=== PATIENT | female | born 1955 | race Caucasian/White ===

== ENCOUNTER 2021-05-29 10:19 | Outpatient (CLI) | payer MEDICARE | END 2021-05-29 10:20 | disposition home or self-care (01) | LOC: CSHRAD 10:19 | PROVIDERS: ATTEND Internal Medicine | DX: M25.552 Pain in left hip (principal) ==

== ENCOUNTER 2021-07-28 14:12 | Outpatient (CLI) | payer MEDICARE | END 2021-07-28 14:13 | disposition home or self-care (01) | LOC: CSHMRI 14:12 | PROVIDERS: ATTEND Internal Medicine | DX: R41.3 Other amnesia (principal); R94.02 Abnormal brain scan | CPT/HCPCS: 70553; 82565 ==

== ENCOUNTER 2021-07-29 14:23 | Inpatient (IN) | payer MEDICARE ==
[2021-07-29 15:22] LABS: ALT (SGPT) 15 U/L (8-55); AST (SGOT) 43 U/L (5-34); Albumin 4.1 g/dL (3.4-4.8); Alkaline Phosphatase 43 U/L (40-110); Anion Gap 16 mmol/L (10-20); BUN (Urea Nitrogen) 15 mg/dL (9.8-20.1); Bilirubin, Total 0.5 mg/dL (0.2-1.2); Calc. Creatinine Clearance 0 mL/min (70-130); Calcium 9.6 mg/dL (7.8-10.44); Carbon Dioxide 23 mmol/L (23-31); Chloride 104 mmol/L (98-107); Globulin 2.5 g/dL (2.4-3.5); Glucose 120 mg/dL (80-115); Potassium 4.4 mmol/L (3.5-5.1); Protein, Total 6.6 g/dL (5.8-8.1); Sodium 139 mmol/L (136-145)
[2021-07-29 15:25] LABS: #Eosinphils 0.1 10x3/uL (0.0-0.5); #Monocytes 0.6 10x3/uL (0.0-1.1); #Neutrophils 4.4 10x3/uL (1.5-8.4); %Basophils 0.4 % (0.0-2.0); %Eosinophils 1.1 % (0.0-6.0); %Lymphocytes 36.2 % (18.0-47.0); %Monocytes 7.3 % (0.0-10.0); %Neutrophils 54.7 % (40.0-75.0); Mean Corpuscular HGB CONC 33.5 g/dL (32.0-36.0); Mean Corpuscular Hemoglobin 30.9 pg (27.0-33.0); Mean Corpuscular Volume 92.2 fl (81.6-98.3); Mean Platelet Volume 10.1 fl (7.4-10.4); Platelet Count 263 10x3/uL (150-450); RBC Distribution Width 11.7 % (11.5-14.5); Red Blood Cell (RBC) Count 4.21 10x6/uL (3.90-5.03)
[2021-07-29] MEDS ORDERED: Enoxaparin Sodium 60 MG/0.6 ML SYRINGE ONE (16:09)
[2021-07-29 17:52] VITALS: BMI 21.2
[2021-07-29] MEDS ORDERED: Nitroglycerin 0.4 MG TAB (25 Tab Bottle) SL PRN (18:26)
[2021-07-29] MEDS ORDERED: Acetaminophen 650 MG Suppository PR PRN (18:26)
[2021-07-29] MEDS ORDERED: Ondansetron ODT 4 MG TAB PO PRN (18:26)
[2021-07-29] MEDS ORDERED: Aspirin Chewable 81 MG TAB PO SCH (19:00)
[2021-07-29] MEDS ORDERED: Dextrose 50% Abboject 50 ML SYRINGE SLOW IVP PRN (19:03)
[2021-07-29] MEDS ORDERED: Dextrose 5% in Water 1,000 ML IV PRN (19:03)
[2021-07-29] MEDS ORDERED: Insulin Regular 300 UNITS/3 ML VIAL SC PRN (19:03)
[2021-07-29 19:05] LABS: Hemoglobin 13.2 g/dL (12.0-15.5); Platelet Count 224 10x3/uL (150-450)
[2021-07-29 19:41] LABS: Syphilis Antibody Nonreactive (Nonreactive); Syphilis Antibody Index 0.06 S/CO (<1.00 Non-Reactive)
[2021-07-29 19:52] LABS: Troponin I 2.675 ng/mL (< 0.028)
[2021-07-29 20:26] LABS: Thyroid Stimulating Hormone 0.6738 uIU/mL (0.35-4.94)
[2021-07-29] MEDS: Atorvastatin Calcium 40 MG TAB PO SCH (20:54)
[2021-07-29] MEDS: Enoxaparin Sodium 60 MG/0.6 ML SYRINGE SC SCH (20:54)
[2021-07-29 22:12] LABS: Troponin I 1.902 ng/mL (< 0.028)
[2021-07-30] MEDS ORDERED: HYDROcodone/Acetaminophen 5/325 mg Tablet PO SCH (01:15)
[2021-07-30 05:42] LABS: Hemoglobin 12.2 g/dL (12.0-15.5); Mean Corpuscular HGB CONC 32.2 g/dL (32.0-36.0); Mean Corpuscular Hemoglobin 30.4 pg (27.0-33.0); Mean Corpuscular Volume 94.5 fl (81.6-98.3); Mean Platelet Volume 9.8 fl (7.4-10.4); Platelet Count 212 10x3/uL (150-450); RBC Distribution Width 11.6 % (11.5-14.5); Red Blood Cell (RBC) Count 4.01 10x6/uL (3.90-5.03); White Blood Cell (WBC) Count 6.7 10x3/uL (3.5-10.5)
[2021-07-30 05:56] LABS: Anion Gap 15 mmol/L (10-20); BUN (Urea Nitrogen) 14 mg/dL (9.8-20.1); Calc. Creatinine Clearance 69 mL/min (70-130); Carbon Dioxide 27 mmol/L (23-31); Cardiac Risk 3.6 (Less than 4.5); Chloride 106 mmol/L (98-107); Cholesterol 198 mg/dl (< 200 Desired); Glucose 81 mg/dL (80-115); HDL Cholesterol 55 mg/dL (>60 Neg Risk); LDL Cholesterol, Calculated 125 mg/dL; Potassium 4.6 mmol/L (3.5-5.1); Sodium 143 mmol/L (136-145); Triglycerides 92 mg/dL (Less than 150)
[2021-07-30 07:23] LABS: MDiff Complete? YES
[2021-07-30 07:27] LABS: Eosinophils 2 % (0-10); Lymphocytes 58 % (21-51); Monocytes 6 % (0-10); Neutrophil 30 % (42-75); Reactive Lymphocytes 3 % (0-10)
[2021-07-30 07:28] LABS: RBC Morphology Normal
[2021-07-30 07:29] LABS: Platelet Morphology Comment Appears Adequate
[2021-07-30] MEDS: Enoxaparin Sodium 60 MG/0.6 ML SYRINGE SC SCH (08:12)
[2021-07-30] MEDS: Communication Order-Pharmacy FS SCH ×2 (08:14→17:33)
[2021-07-30] MEDS ORDERED: Lidocaine 1% PF 5 ML VIAL ONE (08:38)
[2021-07-30] MEDS ORDERED: Bivalirudin 250 MG VIAL ONE (08:39)
[2021-07-30] MEDS ORDERED: Adenosine 6 MG/2 ML VIAL ONE (08:39)
[2021-07-30] MEDS ORDERED: Heparin 10,000 UNITS/ 10 ML VIAL ONE (08:39)
[2021-07-30] MEDS ORDERED: Verapamil 5 MG/2 ML VIAL ONE (08:39)
[2021-07-30] MEDS ORDERED: Sodium Chloride 0.9% 1,000 ML ONE (08:40)
[2021-07-30] MEDS ORDERED: Nitroglycerin 50 MG/250 ML BOT 250 ML ONE (08:40)
[2021-07-30] MEDS: Acetaminophen 325 MG TAB PO PRN (09:32)
[2021-07-30] MEDS: Lorazepam 1 MG TAB PO PRN ×2 (09:33→17:18)
[2021-07-30] MEDS ORDERED: Fentanyl 100 MCG/2 ML VIAL ONE ×2 (12:02→13:31)
[2021-07-30] MEDS ORDERED: Midazolam HCl 2 mg/2 ml Vial ONE ×3 (12:03→13:29)
[2021-07-30] MEDS ORDERED: TICAGRELOR 90 MG TABLET ONE (12:51)
[2021-07-30] MEDS: Sodium Chloride 0.9% 1,000 ML IV SCH (15:23)
[2021-07-30] MEDS ORDERED: SUMAtriptan Succinate 50 MG TAB PO SCH (15:30)
[2021-07-30] MEDS: Ondansetron PF 4 MG/2 ML Vial IVP PRN (15:41)
[2021-07-30] MEDS: traMADol HCl 50 MG TAB PO PRN ×2 (16:25→21:22)
[2021-07-30 18:43] LABS: CKMB 10.6 ng/mL (0-6.6)
[2021-07-30] MEDS: Atorvastatin Calcium 40 MG TAB PO SCH (21:22)
[2021-07-30] MEDS: Propranolol 40 MG TAB PO SCH (21:22)
[2021-07-30] MEDS: TICAGRELOR 90 MG TABLET PO SCH (21:22)
[2021-07-30 22:44] LABS: CKMB 25.3 ng/mL (0-6.6)
[2021-07-30 23:54] LABS: SARS-CoV-2 PCR by NAA Not Detected (NotDetected)
[2021-07-31 02:36] LABS: CKMB 30.4 ng/mL (0-6.6)
[2021-07-31] MEDS: Sodium Chloride 0.9% 1,000 ML IV SCH ×2 (04:52→08:45)
[2021-07-31 05:46] LABS: #Monocytes 0.6 10x3/uL (0.0-1.1); #Neutrophils 7.9 10x3/uL (1.5-8.4); %Basophils 0.1 % (0.0-2.0); %Lymphocytes 11.6 % (18.0-47.0); %Monocytes 6.3 % (0.0-10.0); %Neutrophils 81.7 % (40.0-75.0); Hemoglobin 12.4 g/dL (12.0-15.5); Mean Corpuscular HGB CONC 32.5 g/dL (32.0-36.0); Mean Corpuscular Hemoglobin 30.8 pg (27.0-33.0); Mean Corpuscular Volume 94.5 fl (81.6-98.3); Mean Platelet Volume 9.7 fl (7.4-10.4); Platelet Count 266 10x3/uL (150-450); RBC Distribution Width 11.7 % (11.5-14.5); Red Blood Cell (RBC) Count 4.03 10x6/uL (3.90-5.03); White Blood Cell (WBC) Count 9.6 10x3/uL (3.5-10.5)
[2021-07-31 06:03] LABS: Anion Gap 17 mmol/L (10-20); BUN (Urea Nitrogen) 11 mg/dL (9.8-20.1); Calc. Creatinine Clearance 83 mL/min (70-130); Calcium 8.4 mg/dL (7.8-10.44); Carbon Dioxide 19 mmol/L (23-31); Chloride 106 mmol/L (98-107); Glucose 110 mg/dL (80-115); Potassium 4.1 mmol/L (3.5-5.1); Sodium 138 mmol/L (136-145)
[2021-07-31] MEDS: TICAGRELOR 90 MG TABLET PO SCH (08:44)
[2021-07-31] MEDS: Aspirin Chewable 81 MG TAB PO SCH (08:44)
[2021-07-31] MEDS: Propranolol 40 MG TAB PO SCH ×2 (08:44→20:56)
[2021-07-31] MEDS: Ondansetron PF 4 MG/2 ML Vial IVP PRN (08:52)
[2021-07-31] MEDS: traMADol HCl 50 MG TAB PO PRN (12:26)
[2021-07-31] MEDS ORDERED: Clopidogrel Bisulfate 75 MG TAB PO SCH ×2 (20:00→21:00)
[2021-07-31] MEDS: Lorazepam 1 MG TAB PO PRN (20:55)
[2021-07-31] MEDS: Atorvastatin Calcium 40 MG TAB PO SCH (20:55)
[2021-07-31] MEDS: Acetaminophen 325 MG TAB PO PRN (22:40)
[2021-08-01] MEDS: Sodium Chloride 0.9% 1,000 ML IV SCH ×3 (00:34→16:29)
[2021-08-01 04:19] LABS: #Monocytes 1.1 10x3/uL (0.0-1.1); #Neutrophils 6.4 10x3/uL (1.5-8.4); %Basophils 0.4 % (0.0-2.0); %Eosinophils 0.2 % (0.0-6.0); %Lymphocytes 21.9 % (18.0-47.0); %Monocytes 11.3 % (0.0-10.0); %Neutrophils 65.9 % (40.0-75.0); Hemoglobin 10.8 g/dL (12.0-15.5); Mean Corpuscular HGB CONC 33.4 g/dL (32.0-36.0); Mean Corpuscular Volume 92.8 fl (81.6-98.3); Mean Platelet Volume 9.8 fl (7.4-10.4); Platelet Count 206 10x3/uL (150-450); RBC Distribution Width 11.8 % (11.5-14.5); Red Blood Cell (RBC) Count 3.48 10x6/uL (3.90-5.03); White Blood Cell (WBC) Count 9.7 10x3/uL (3.5-10.5)
[2021-08-01 04:48] LABS: Anion Gap 15 mmol/L (10-20); BUN (Urea Nitrogen) 6 mg/dL (9.8-20.1); Calc. Creatinine Clearance 89 mL/min (70-130); Calcium 8.1 mg/dL (7.8-10.44); Carbon Dioxide 18 mmol/L (23-31); Chloride 110 mmol/L (98-107); Glucose 84 mg/dL (80-115); Potassium 3.5 mmol/L (3.5-5.1); Sodium 139 mmol/L (136-145)
[2021-08-01] MEDS: Aspirin Chewable 81 MG TAB PO SCH (07:56)
[2021-08-01] MEDS: Acetaminophen 325 MG TAB PO PRN (08:00)
[2021-08-01] MEDS ORDERED: Clopidogrel Bisulfate 75 MG TAB PO SCH (09:00)
[2021-08-01] MEDS: Propranolol 40 MG TAB PO SCH (12:05)
[2021-08-01] MEDS ORDERED: diphenhydrAMINE 25 MG CAP PO SCH (14:00)
[2021-08-01 15:36] LABS: ANA Symphony (Qualitative) Negative (Negative); ANA Symphony (Quantitative) 0.1 Ratio (< 0.7 Negative); dsDNA IgG Antibody 0.8 IU/mL (<10 Negative)
[2021-08-01 16:53] VITALS: BP 132/63; TEMP 98
== END 2021-08-01 17:50 | disposition home or self-care (01) | DRG 247 ==
LOC: CSHERS 14:23 → CSHTELE 17:40 → OBSVTOIN 21:00
PROVIDERS: ADMIT Internal Medicine; ATTEND Family Medicine
PROC: 027034Z Dilation of Coronary Artery, One Artery with Drug-eluting Intraluminal Device, Percutaneous Approach (ICD-10-PCS; principal; 2021-07-30)
PROC: 4A023N7 Measurement of Cardiac Sampling and Pressure, Left Heart, Percutaneous Approach (ICD-10-PCS; 2021-07-30)
PROC: B2111ZZ Fluoroscopy of Multiple Coronary Arteries using Low Osmolar Contrast (ICD-10-PCS; 2021-07-30)
DX: I21.4 Non-ST elevation (NSTEMI) myocardial infarction (principal); I10 Essential (primary) hypertension; E78.5 Hyperlipidemia, unspecified; K21.9 Gastro-esophageal reflux disease without esophagitis; I25.10 Atherosclerotic heart disease of native coronary artery without angina pectoris; F01.50 Vascular dementia, unspecified severity, without behavioral disturbance, psychotic disturbance, mood disturbance, and anxiety; Z20.822 Contact with and (suspected) exposure to COVID-19; F41.9 Anxiety disorder, unspecified; R41.3 Other amnesia; E11.9 Type 2 diabetes mellitus without complications; Z88.2 Allergy status to sulfonamides; Z88.1 Allergy status to other antibiotic agents; Z88.8 Allergy status to other drugs, medicaments and biological substances; I25.2 Old myocardial infarction; Z91.14 Patient's other noncompliance with medication regimen
CPT/HCPCS: 36415; 36416; 70553; 71045; 80048; 80053; 80061; 82553; 82565; 82607; 82746; 84425; 84443; 84484; 85025; 86038; 86225; 86780; 92928; 92978; 92979; 93005; 93010; 93306; 93458; 94760; 96372; 97139; 99152; 99153; C1753; C1874; C1887; C9600; G0277; J0153; J0583; J1644; J1650; J2250; J2405; J3010; J7050; Q0162; U0003; U0005

== ENCOUNTER 2022-02-11 09:57 | Outpatient (CLI) | payer MEDICARE ==
[2022-02-11 11:14] LABS: Estimated GFR-MDRD - POC Greater than 90
== END 2022-02-11 09:58 | disposition home or self-care (01) ==
LOC: CSHCT 09:57
PROVIDERS: ATTEND Student in an Organized Health Care Education/Training Program
DX: R63.4 Abnormal weight loss (principal); I67.9 Cerebrovascular disease, unspecified; R91.1 Solitary pulmonary nodule; N13.30 Unspecified hydronephrosis; K57.30 Diverticulosis of large intestine without perforation or abscess without bleeding; Z98.890 Other specified postprocedural states; Z86.73 Personal history of transient ischemic attack (TIA), and cerebral infarction without residual deficits
CPT/HCPCS: 70553; 71260; 74177; 82565

== ENCOUNTER 2022-02-19 13:54 | Outpatient (CLI) | payer MEDICARE | END 2022-02-19 13:55 | disposition home or self-care (01) | LOC: CSHMAMMO 13:54 | PROVIDERS: ATTEND Student in an Organized Health Care Education/Training Program | DX: Z12.31 Encounter for screening mammogram for malignant neoplasm of breast (principal); Z98.82 Breast implant status | CPT/HCPCS: 77063; 77067 ==

== ENCOUNTER 2022-06-11 10:20 | Outpatient (CLI) | payer MEDICARE | END 2022-06-11 10:21 | disposition home or self-care (01) | LOC: CSHULT 10:20 | PROVIDERS: ATTEND Physician Assistant Medical | DX: K44.9 Diaphragmatic hernia without obstruction or gangrene (principal); Z86.010 Personal history of colon polyps; K22.70 Barrett's esophagus without dysplasia; R19.7 Diarrhea, unspecified; R10.13 Epigastric pain; R10.11 Right upper quadrant pain; K80.20 Calculus of gallbladder without cholecystitis without obstruction | CPT/HCPCS: 76705 ==

== ENCOUNTER → 2022-07-06 | Day surgery (SDC) | payer MEDICARE ==
[2022-07-02 13:05] VITALS: BMI 21.1
== END ==
LOC: CSHSDC 06:16
PROVIDERS: ATTEND Surgery
DX: K80.20 Calculus of gallbladder without cholecystitis without obstruction (principal); Z53.8 Procedure and treatment not carried out for other reasons; K44.9 Diaphragmatic hernia without obstruction or gangrene; K21.9 Gastro-esophageal reflux disease without esophagitis; I10 Essential (primary) hypertension; E78.00 Pure hypercholesterolemia, unspecified; I25.2 Old myocardial infarction; K59.09 Other constipation; F32.A Depression, unspecified; K64.9 Unspecified hemorrhoids; Z79.02 Long term (current) use of antithrombotics/antiplatelets; Z79.82 Long term (current) use of aspirin; Z79.899 Other long term (current) drug therapy; Z88.2 Allergy status to sulfonamides; Z88.8 Allergy status to other drugs, medicaments and biological substances; Z90.49 Acquired absence of other specified parts of digestive tract; Z98.890 Other specified postprocedural states
CPT/HCPCS: 93005; 93010

== ENCOUNTER 2022-08-17 05:50 | Day surgery (SDC) | payer MEDICARE ==
[2022-08-16 09:47] VITALS: BMI 21.4
[2022-08-17] MEDS ORDERED: Lidocaine 1% MPF 2 ML VIAL ONE (07:07)
[2022-08-17] MEDS ORDERED: Bupivacaine 0.25% HCL 30 ML VIAL ONE (07:52)
[2022-08-17] MEDS ORDERED: EPINEPHrine 1 MG/ML AMP ONE (07:52)
[2022-08-17] MEDS ORDERED: Fentanyl 100 MCG/2 ML VIAL ONE ×2 (07:56→09:23)
[2022-08-17] MEDS ORDERED: Ondansetron PF 4 MG/2 ML Vial ONE (07:56)
[2022-08-17] MEDS ORDERED: Rocuronium Bromide 10 MG/ML (10ML VIAL) ONE (07:56)
[2022-08-17] MEDS ORDERED: Lidocaine 1% PF 5 ML VIAL ONE (07:56)
[2022-08-17] MEDS ORDERED: PROPOFOL 20 ML ONE (07:56)
[2022-08-17] MEDS ORDERED: CEFAZOLIN 2 GM VIAL ONE (07:58)
[2022-08-17] MEDS ORDERED: Dexamethasone 20 MG/5 ML VIAL ONE (08:16)
[2022-08-17] MEDS ORDERED: ePHEDrine Sulfate 50 MG/10 ML VIAL ONE (08:20)
[2022-08-17] MEDS ORDERED: Glycopyrrolate 0.2 MG/ML 5 ML SYRINGE ONE (08:27)
== END 2022-08-17 10:25 | disposition home or self-care (01) ==
LOC: CSHSDC 05:50
PROVIDERS: ATTEND Surgery
PROC: 0FT44ZZ Resection of Gallbladder, Percutaneous Endoscopic Approach (ICD-10-PCS; principal; 2022-08-17)
DX: K80.10 Calculus of gallbladder with chronic cholecystitis without obstruction (principal); I10 Essential (primary) hypertension; I25.10 Atherosclerotic heart disease of native coronary artery without angina pectoris; K21.9 Gastro-esophageal reflux disease without esophagitis; F41.9 Anxiety disorder, unspecified; Z98.890 Other specified postprocedural states; Z88.2 Allergy status to sulfonamides; Z88.6 Allergy status to analgesic agent; Z79.82 Long term (current) use of aspirin; Z79.899 Other long term (current) drug therapy; Z79.02 Long term (current) use of antithrombotics/antiplatelets; Z86.73 Personal history of transient ischemic attack (TIA), and cerebral infarction without residual deficits
CPT/HCPCS: 88304; C1889; J0171; J1100; J2405; J2704; J3010; S0020

== ENCOUNTER 2024-08-13 10:21 | Outpatient (CLI) | payer MEDICARE ==
[2024-08-13 11:10] LABS: Hematocrit 42.3 % (34.9-44.5); Hemoglobin 13.5 g/dL (12.0-15.5); Mean Corpuscular HGB CONC 31.9 g/dL (32.0-36.0); Mean Platelet Volume 9.6 fL (7.4-10.4); Platelet Count 271 10x3/uL (150-450); RBC Distribution Width 12.3 % (11.5-14.5); Red Blood Cell (RBC) Count 4.36 10x6/uL (3.90-5.03); White Blood Cell (WBC) Count 7.1 10x3/uL (3.5-10.5)
[2024-08-13 11:39] LABS: Anion Gap 16 mmol/L (10-20); BUN (Urea Nitrogen) 14 mg/dL (9.8-20.1); Calc. Creatinine Clearance 0 mL/min (70-130); Calcium 9.8 mg/dL (7.8-10.44); Carbon Dioxide 25 mmol/L (23-31); Chloride 107 mmol/L (98-107); Estimated GFR 86; Glucose 101 mg/dL (80-115); Potassium 4.6 mmol/L (3.5-5.1); Sodium 143 mmol/L (136-145)
== END 2024-08-13 10:22 | disposition home or self-care (01) ==
LOC: CSHLAB 10:21
PROVIDERS: ATTEND Surgery
DX: Z01.818 Encounter for other preprocedural examination (principal); K21.9 Gastro-esophageal reflux disease without esophagitis
CPT/HCPCS: 80048; 85027; 93005; 93010

== ENCOUNTER 2024-08-14 10:30 | Day surgery (SDC) | payer MEDICARE ==
[2024-08-13 10:56] VITALS: BMI 23.1
[2024-08-14] MEDS ORDERED: Lidocaine 2% MPF 10 ML AMP (For Epidural Use) ONE (13:19)
[2024-08-14] MEDS ORDERED: PROPOFOL 20 ML ONE (13:19)
== END 2024-08-14 14:25 | disposition home or self-care (01) ==
LOC: CSHSDC 10:30
PROVIDERS: ATTEND Surgery
PROC: 0DB78ZX Excision of Stomach, Pylorus, Via Natural or Artificial Opening Endoscopic, Diagnostic (ICD-10-PCS; principal; 2024-08-14)
DX: K31.89 Other diseases of stomach and duodenum (principal); K21.9 Gastro-esophageal reflux disease without esophagitis; K44.9 Diaphragmatic hernia without obstruction or gangrene; K29.70 Gastritis, unspecified, without bleeding; I10 Essential (primary) hypertension; E78.5 Hyperlipidemia, unspecified; Z86.73 Personal history of transient ischemic attack (TIA), and cerebral infarction without residual deficits; Z88.8 Allergy status to other drugs, medicaments and biological substances; Z88.2 Allergy status to sulfonamides; Z88.1 Allergy status to other antibiotic agents; Z79.82 Long term (current) use of aspirin; Z79.899 Other long term (current) drug therapy
CPT/HCPCS: 43239; J2704; 88305

== ENCOUNTER → 2024-08-22 | Outpatient (CLI) | payer MEDICARE | LOC: CSHRAD 09:10 | PROVIDERS: ATTEND Surgery | DX: K21.9 Gastro-esophageal reflux disease without esophagitis (principal); K44.9 Diaphragmatic hernia without obstruction or gangrene | CPT/HCPCS: 74246 ==

== ENCOUNTER 2024-08-29 09:06 | Outpatient (CLI) | payer MEDICARE ==
[2024-08-29 10:41] LABS: Hematocrit 40.1 % (34.9-44.5); Hemoglobin 13.1 g/dL (12.0-15.5); Mean Corpuscular HGB CONC 32.7 g/dL (32.0-36.0); Mean Corpuscular Hemoglobin 31.3 pg (27.0-33.0); Mean Corpuscular Volume 95.7 fL (81.6-98.3); Platelet Count 259 10x3/uL (150-450); RBC Distribution Width 12.4 % (11.5-14.5); Red Blood Cell (RBC) Count 4.19 10x6/uL (3.90-5.03); White Blood Cell (WBC) Count 5.6 10x3/uL (3.5-10.5)
[2024-08-29 11:46] LABS: Anion Gap 13 mmol/L (10-20); BUN (Urea Nitrogen) 14 mg/dL (9.8-20.1); Calc. Creatinine Clearance 0 mL/min (70-130); Calcium 9.3 mg/dL (7.8-10.44); Carbon Dioxide 27 mmol/L (23-31); Chloride 107 mmol/L (98-107); Estimated GFR 90; Glucose 96 mg/dL (80-115); Potassium 4.2 mmol/L (3.5-5.1); Sodium 143 mmol/L (136-145)
== END 2024-08-29 09:07 | disposition home or self-care (01) ==
LOC: CSHLAB 09:06
PROVIDERS: ATTEND Surgery
DX: Z01.812 Encounter for preprocedural laboratory examination (principal); K21.9 Gastro-esophageal reflux disease without esophagitis
CPT/HCPCS: 80048; 85027

== ENCOUNTER 2024-08-29 09:30 | Inpatient (IN) | payer MEDICARE ==
[2024-08-29 09:31] VITALS: BMI 23.3
[2024-09-03] MEDS ORDERED: CEFAZOLIN 2 GM VIAL ONE (08:55)
[2024-09-03] MEDS ORDERED: Bupivacaine HCl 0.5%/Epinephrine 1:200,000/PF 30 ml Vial ONE (08:55)
[2024-09-03] MEDS ORDERED: Bupivacaine/Epinephrine 0.25% 30 ML VIAL ONE ×2 (09:03→10:06)
[2024-09-03] MEDS ORDERED: PROPOFOL 20 ML ONE (09:08)
[2024-09-03] MEDS ORDERED: fentaNYL 50 mcg/mL 1 mL Vial ONE ×4 (09:08→13:28)
[2024-09-03] MEDS ORDERED: Fentanyl 250 MCG/5 ML VIAL ONE (09:09)
[2024-09-03] MEDS ORDERED: Lidocaine 1% PF 5 ML VIAL ONE (09:10)
[2024-09-03] MEDS ORDERED: Rocuronium Bromide 10 MG/ML (10ML VIAL) ONE ×2 (09:10→12:27)
[2024-09-03] MEDS ORDERED: Propofol 1,000 MG/100 ML VIAL IV ONE (09:11)
[2024-09-03] MEDS ORDERED: ePHEDrine Sulfate 50 MG/10 ML VIAL ONE (10:02)
[2024-09-03] MEDS ORDERED: Dexamethasone 20 MG/5 ML VIAL ONE (10:02)
[2024-09-03] MEDS ORDERED: Glycopyrrolate 0.2 MG/ML 5 ML SYRINGE ONE (10:04)
[2024-09-03] MEDS ORDERED: PHENYLEPHRINE-NS 100 MCG/ML 10 ML SYRINGE ONE (10:34)
[2024-09-03] MEDS ORDERED: Phenylephrine 40 MG/NS 250 ML 250 ML ONE (10:49)
[2024-09-03] MEDS ORDERED: Ondansetron PF 4 MG/2 ML Vial ONE (12:34)
[2024-09-03] MEDS ORDERED: SUGAMMADEX SODIUM 200 MG/2 ML VIAL ONE (12:34)
[2024-09-03] MEDS ORDERED: Dexmedetomidine 200 MCG/2 ML VIAL ONE (12:35)
[2024-09-03] MEDS ORDERED: Glucagon 1 MG/ML KIT IM PRN (12:53)
[2024-09-03] MEDS ORDERED: Dextrose 5% in Water 1,000 ML IV PRN (12:53)
[2024-09-03] MEDS ORDERED: Dextrose 50% Abboject 50 ML SYRINGE SLOW IVP PRN (12:53)
[2024-09-03] MEDS ORDERED: Ipratropium/Albuterol 3 ML NEB NEB PRN (12:53)
[2024-09-03] MEDS ORDERED: Promethazine HCl 25 MG/ML VIAL IM PRN (12:53)
[2024-09-03] MEDS ORDERED: hydrALAZINE 20 MG/ML VIAL SLOW IVP PRN (12:53)
[2024-09-03] MEDS: Acetaminophen 650 MG/20.3 ML UDCUP PO SCH (14:40)
[2024-09-03] MEDS: D5 1/2 NS w/20 mEq KCL 1,000 ML IV SCH (14:40)
[2024-09-03] MEDS: Ondansetron PF 4 MG/2 ML Vial IVP PRN (16:23)
[2024-09-03] MEDS: oxyCODONE 5 MG TAB PO PRN (16:30)
[2024-09-03] MEDS: Ketorolac Tromethamine 30 MG (1 mL) VIAL IVP SCH (17:55)
[2024-09-03] MEDS: traMADol HCl 50 MG TAB PO PRN (19:57)
[2024-09-03] MEDS: Propranolol HCl 20 MG TAB PO SCH (22:03)
[2024-09-03] MEDS: Amlodipine 5 MG TAB PO SCH (22:03)
[2024-09-04] MEDS: diphenhydrAMINE 50 MG/ML VIAL IVP PRN (00:27)
[2024-09-04 09:11] VITALS: TEMP 98.2
[2024-09-04] MEDS: Pantoprazole 40 MG VIAL IVP SCH (09:17)
[2024-09-04] MEDS: Enoxaparin 30 MG (0.3 mL) SYRINGE SC SCH (09:17)
[2024-09-04] MEDS: FLU (Fluad Triv) TS24-25 (65UP)/MF59C/PF 45 MCG/0.5 ML Syringe IM ONE (12:00)
[2024-09-04 14:20] VITALS: BP 92/49
== END 2024-09-04 15:34 | disposition home or self-care (01) | DRG 328 ==
LOC: CSHTELE 09-03 08:26
PROVIDERS: ADMIT Surgery; ATTEND Surgery
PROC: 0DV44ZZ Restriction of Esophagogastric Junction, Percutaneous Endoscopic Approach (ICD-10-PCS; principal; 2024-09-03)
PROC: 0BQT4ZZ Repair Diaphragm, Percutaneous Endoscopic Approach (ICD-10-PCS; 2024-09-03)
PROC: 8E0W4CZ Robotic Assisted Procedure of Trunk Region, Percutaneous Endoscopic Approach (ICD-10-PCS; 2024-09-03)
DX: K44.9 Diaphragmatic hernia without obstruction or gangrene (principal); K21.9 Gastro-esophageal reflux disease without esophagitis; Z88.0 Allergy status to penicillin; Z90.49 Acquired absence of other specified parts of digestive tract
CPT/HCPCS: 36416; 94760; 94762; J1100; J1200; J1650; J1885; J2405; J2470; J2704; J3010; J3480; S2900